=== PATIENT | female | born 1990 | race Caucasian/White ===

== ENCOUNTER 2017-01-01 00:19 | Emergency (ER) | payer MEDICAID ==
[~2017-01-01] VITALS: Ht 157.5 cm; Wt 94.0 kg
[~2017-01-01 00:19] MED LIST: ACET325 PO; AMIT25TA20 PO; BAYE2KIT XX; CYCL-36 PO; IMIT25TA PO; LABE100T2 PO; METR375C2 PO; NAPR550 PO; PREN0.01 PO; ZOVI400T15 PO
[2017-01-01] MEDS ORDERED: SODIUM CHLORIDE 0.9% FLUSH 10 ML FLUSH IV FLUSH PRN (00:30)
[2017-01-01 00:39] VITALS: BP 135/84; PULSE 76; RESP 12; TEMP 98.2; O2SAT 99
--- NOTE | 2017-01-01 01:28 | PD ---
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 Patient states that she is also been having some back pain radiating around her abdomen which is fairly constant but spasmodic in nature as well. Denies any dysuria denies any vaginal discharge or fevers denies any nausea vomiting diarrhea constipation. Patient states symptoms started yesterday began gradually worsening. Patient is concerned because she has an IUD in place. [facility] Past Medical History Diabetes: Yes (GESTATIONAL) Patient Takes Glucophage: No Diminished Hearing: No Hypertension: Yes (PREECLAMPSIA) Tetanus Vaccination: > 5 Years Influenza Vaccination: Yes ?: LMP: 11/19/16 : 5 Para: 3 : 1 Past Surgical History Surgical History: No Previous Surgery Social History Alcohol Use: No Tobacco Use: No (QUIT 2011) Substance Use: Yes ("SMOKE WEED EVERY ONCE IN AWHILE") Allergies-Medications (Allergen,Severity, Reaction): Coded Allergies: No Known Allergies (Verified , 01/01/17) Reported Meds & Prescriptions Reported Meds & Active Scripts Active No Active Prescriptions or Reported Medications Review of Systems Except as stated in HPI: all other systems reviewed are Neg Physical Exam Narrative GENERAL: [Well-developed well-nourished no apparent distress, sitting upright taxing on phone. SKIN: Focused skin assessment warm/dry. HEAD: Atraumatic. Normocephalic. EYES: Pupils equal and round. No scleral icterus. No injection or drainage. ENT: No nasal bleeding or discharge. Mucous membranes pink and moist. NECK: Trachea midline. No JVD. CARDIOVASCULAR: Regular rate and rhythm. No murmur appreciated. RESPIRATORY: No accessory muscle use. Clear to auscultation. Breath sounds equal bilaterally. GASTROINTESTINAL: Abdomen soft, non-tender, nondistended. Hepatic and splenic margins not palpable. GENITOURINARY: Exam performed with female nurse statistical typist present at all times, patient is no external lesion, there is minimal blood in the posterior fornix, cervix is closed, no cervical motion tenderness no bimanual tenderness, no vaginal tear, bleeding appears to be cervical in nature. MUSCULOSKELETAL: No obvious deformities. No clubbing. No cyanosis. No edema. NEUROLOGICAL: Awake and alert. No obvious cranial nerve deficits. Motor grossly within normal limits. Normal speech. PSYCHIATRIC: Appropriate mood and affect; insight and judgment normal. Data Data Last Documented VS Vital Signs Date Time Temp Pulse Resp B/P Pulse Ox O2 Delivery O2 Flow Rate FiO2 01/01/17 03:16 66 16 140/81 97 01/01/17 00:39 98.2 Orders Beta Hcg (Quant/Titer) (01/01/17 00:24) Complete Blood Count With Diff (01/01/17 00:24) Comprehensive Metabolic Panel (01/01/17 00:24) Urinalysis - C+S If Indicated (01/01/17 00:24) Iv Access Insert/Monitor (01/01/17 00:24) Ecg Monitoring (01/01/17 00:24) Oximetry (01/01/17 00:24) Sodium Chloride 0.9% Flush (Ns Flush) (01/01/17 00:30) Ed Poc Ultrasound (01/01/17 00:50) Labs Laboratory Tests Test 01/01/17 01:05 White Blood Count 9.8 TH/MM3 Red Blood Count 4.79 MIL/MM3 Hemoglobin 13.6 GM/DL Hematocrit 41.0 % Mean Corpuscular Volume 85.6 FL Mean Corpuscular Hemoglobin 28.4 PG Mean Corpuscular Hemoglobin 33.2 % Concent Red Cell Distribution Width 13.8 % Platelet Count 200 TH/MM3 Mean Platelet Volume 9.0 FL Neutrophils (%) (Auto) 64.0 % Lymphocytes (%) (Auto) 28.2 % Monocytes (%) (Auto) 4.7 % Eosinophils (%) (Auto) 0.4 % Basophils (%) (Auto) 2.7 % Neutrophils # (Auto) 6.2 TH/MM3 Lymphocytes # (Auto) 2.8 TH/MM3 Monocytes # (Auto) 0.5 TH/MM3 Eosinophils # (Auto) 0.0 TH/MM3 Basophils # (Auto) 0.3 TH/MM3 CBC Comment DIFF FINAL Differential Comment Sodium Level 141 MEQ/L Potassium Level 3.4 MEQ/L Chloride Level 106 MEQ/L Carbon Dioxide Level 26.9 MEQ/L Anion Gap 8 MEQ/L Blood Urea Nitrogen 9 MG/DL Creatinine 0.78 MG/DL Estimat Glomerular Filtration 88 ML/MIN Rate Random Glucose 117 MG/DL Calcium Level 8.9 MG/DL Total Bilirubin 0.3 MG/DL Aspartate Amino Transf 11 U/L (AST/SGOT) Alanine Aminotransferase 18 U/L (ALT/SGPT) Alkaline Phosphatase 49 U/L Total Protein 7.3 GM/DL Albumin 3.6 GM/DL Human Chorionic Gonadotropin, LESS THAN 1 Quant MIU/ML MDM Medical Decision Making Medical Screen Exam Complete: Yes Emergency Medical Condition: Yes Differential Diagnosis Spontaneous miscarriage, ectopic , pelvic pain. Narrative Course at approximate 4-6 weeks gestational age presents emergency Department with pelvic pain and vaginal spotting now becoming little bit heavier with pea- sized clots. Patient's blood type is Rh+ by previous lab tests. Her labs are reassuring hemoglobin is within normal limits. Beta Quant is 0. Initial consideration was given to pelvic ultrasound that the patient is not currently . Patient was consoled and discussed with her need follow-up with her GERIATRIC PSYCHIATRIST and she has appointment later this month. 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 Discussed of any of these symptoms or others occur she is welcome to return emerged permit for second evaluation. She stable for discharge this time. Procedures Procedure Narrative Transabdominal ultrasound: Transabdominal ultrasound view was obtained of the uterus shows no gestational sac, there is some nonuniform tissue inside the uterus consistent with minimal blood. No pelvic free fluid. Diagnosis Primary Impression: Spontaneous miscarriage Additional Instructions: Follow-up with your GERIATRIC PSYCHIATRIST on as scheduled. Scripts No Active Prescriptions or Reported Meds Disposition: DISCHARGE HOME Condition: Stable Dieter Garcia MD January 01, 2017 01:28
[2017-01-01 01:31] LABS: AUTOMATED NEUTROPHIL # 6.2 TH/MM3 (1.8-7.7); BASOPHIL # 0.3 TH/MM3 (0-0.2); BASOPHIL % 2.7 % (0.0-2.0); EOSINOPHIL % 0.4 % (0.0-4.0); HEMO FLAGS DIFF FINAL; LYMPH % 28.2 % (9.0-44.0); LYMPHOCYTE # 2.8 TH/MM3 (1.0-4.8); MEAN CELL VOLUME 85.6 FL (80.0-100.0); MEAN CORPUSCULAR HEMOGLOBIN 28.4 PG (27.0-34.0); MEAN CORPUSCULAR HGB CONC 33.2 % (32.0-36.0); MONO % 4.7 % (0.0-8.0); PLATELET COUNT 200 TH/MM3 (150-450); RED BLOOD COUNT 4.79 MIL/MM3 (4.00-5.30); RED CELL DISTRIBUTION WIDTH 13.8 % (11.6-17.2); WHITE BLOOD COUNT 9.8 TH/MM3 (4.0-11.0)
[2017-01-01 01:38] LABS: CHLORIDE 106 MEQ/L (98-107); POTASSIUM 3.4 MEQ/L (3.5-5.1); SODIUM (NA) 141 MEQ/L (136-145)
[2017-01-01 01:42] LABS: ANION GAP 8 MEQ/L (5-15); BICARBONATE 26.9 MEQ/L (21.0-32.0); BLOOD UREA NITROGEN 9 MG/DL (7-18)
[2017-01-01 01:45] LABS: ALT (GPT) 18 U/L (10-53); AST (GOT) 11 U/L (15-37); GLOMERULAR FILTRATION RATE 88 ML/MIN (>89)
[2017-01-01 01:46] LABS: TOTAL BILIRUBIN ADULT 0.3 MG/DL (0.2-1.0)
[2017-01-01 01:48] LABS: ALKALINE PHOSPHATASE 49 U/L (45-117)
[2017-01-01 01:50] LABS: BETA HCG QUANT LESS THAN 1 MIU/ML (0-5)
[2017-01-01 03:16] VITALS: BP 140/81
== END 2017-01-01 03:18 | disposition home or self-care (01) ==
LOC: PHED 00:19
DX: O03.9 Complete or unspecified spontaneous abortion without complication (principal); O24.419 Gestational diabetes mellitus in pregnancy, unspecified control; O14.90 Unspecified pre-eclampsia, unspecified trimester; Z87.891 Personal history of nicotine dependence
CPT/HCPCS: 80053; 84702; 85025